=== PATIENT | female | born 1950 | race Caucasian/White ===

== ENCOUNTER 2020-06-19 09:24 | Day surgery (SDC) | payer MEDICARE, OTHER ==
[2020-06-18 12:18] LABS: BASOPHILS # (AUTO) 0.1 X10'3 (0-0.2); BASOPHILS % (AUTO) 1.4 % (0-1); EOSINOPHILS # (AUTO) 0.2 X10'3 (0-0.9); EOSINOPHILS % (AUTO) 3.5 % (0-6); HEMATOCRIT 41.5 % (35.0-45.0); LYMPHOCYTES # (AUTO) 1.5 X10'3 (1.1-4.8); LYMPHOCYTES % (AUTO) 24.4 % (21-51); MEAN CORPUSCULAR HEMOGLOBIN 32.9 PG (27.0-31.0); MEAN CORPUSCULAR HGB CONC 33.8 g/dL (33.0-36.5); MEAN CORPUSCULAR VOLUME 97.5 FL (78-98); MEAN PLATELET VOLUME 9.8 FL (7.4-10.4); MONOCYTES # (AUTO) 0.6 X10'3 (0-0.9); NEUTROPHILS # (AUTO) 3.8 X10'3 (1.8-7.7); NEUTROPHILS % (AUTO) 60.7 % (42-75); PLATELET COUNT 189 X10'3 (140-440); RED BLOOD COUNT 4.26 X10'6 (4.20-5.60); RED CELL DISTRIBUTION WIDTH 12.8 % (11.5-14.5); WHITE BLOOD COUNT 6.3 X10'3 (4.5-11.0)
[2020-06-18 12:25] LABS: ALBUMIN 3.9 G/DL (3.4-5.0); ANION GAP 9 (8-16); BLOOD UREA NITROGEN 26 MG/DL (7-18); BUN/CREATININE RATIO 27.4 (6.6-38.0); CALCIUM 9.3 MG/DL (8.5-10.1); CHLORIDE 103 MMOL/L (99-107); CREATININE 0.95 MG/DL (0.40-0.90); GLUCOSE 94 MG/DL (70-104); POTASSIUM 4.4 MMOL/L (3.5-5.1); SODIUM 139 MMOL/L (135-145); TOTAL CARBON DIOXIDE 27.2 MMOL/L (24-32); eGFR 58 ML/MIN
[2020-06-18 12:27] LABS: PARTIAL THROMBOPLASTIN TIME 28 SECONDS (22-32)
[2020-06-19] VITALS (9 sets, daily range): BP systolic 95–134; BP diastolic 50–71
[~2020-06-19] VITALS: Ht 162.6 cm; Wt 79.5 kg
[2020-06-19] MEDS ORDERED: normal saline 1,000 ML IV SCH (09:45)
[2020-06-19] MEDS ORDERED: LORazepam 0.5 MG tablet PO PRN (09:45)
[2020-06-19] MEDS ORDERED: diphenhydrAMINE 25mg capsule PO PRN (09:45)
[2020-06-19] MEDS ORDERED: LIDOcaine/PRILOcaine 5gm cream TP ONE (10:20)
[2020-06-19] MEDS ORDERED: LEVO137T19 PO (10:23)
[2020-06-19] MEDS ORDERED: EZET1TAB26 PO (10:23)
[2020-06-19] MEDS ORDERED: CRAN405C PO (10:23)
[2020-06-19] MEDS ORDERED: ESZO3TAB66 PO (10:23)
[2020-06-19] MEDS ORDERED: CINN500C15 PO (10:23)
[2020-06-19] MEDS ORDERED: ESTR42.53 (10:23)
[2020-06-19] MEDS ORDERED: CELE-85 PO (10:23)
[2020-06-19] MEDS ORDERED: LACT1CAP65 PO (10:23)
[2020-06-19] MEDS ORDERED: AMIT10TA6 PO (10:23)
[2020-06-19] MEDS ORDERED: MV-M1TAB19 PO (10:23)
[2020-06-19] MEDS ORDERED: UBID100C16 PO (10:23)
[2020-06-19] MEDS ORDERED: LIDOcaine 1% (10mg/ml)w/preservative injection 20ml MDV ONE (11:52)
[2020-06-19] MEDS ORDERED: iohexol 350 MG/ML 50ML vial IV ONE (11:53)
[2020-06-19] MEDS ORDERED: nitroGLYCERIN-Tridil 50MG/D5W 250 ML IV ONE (11:53)
[2020-06-19] MEDS ORDERED: verapamil 2.5 mg/ml inj IV ONE (11:53)
[2020-06-19] MEDS ORDERED: iohexol 350MG/ML 100ml bottle IV ONE (11:53)
[2020-06-19] MEDS ORDERED: heparin 1,000unit/ml 10ml vial 10 ML ONE (11:53)
[2020-06-19] MEDS ORDERED: midazolam 2 mg/2 ml injection ONE (11:54)
[2020-06-19] MEDS ORDERED: fentaNYL/PF 50MCG/1 ML 2ML syringe ONE (11:54)
[2020-06-19] MEDS ORDERED: normal saline 1000ml 1,000 ML IV ONE (13:40)
== END 2020-06-19 17:50 | disposition home or self-care (01) ==
LOC: SSTAY O 09:24
PROVIDERS: ATTEND Internal Medicine Cardiovascular Disease
DX: R94.39 Abnormal result of other cardiovascular function study (principal); R06.02 Shortness of breath; R07.89 Other chest pain; I25.10 Atherosclerotic heart disease of native coronary artery without angina pectoris; E78.5 Hyperlipidemia, unspecified; Z79.899 Other long term (current) drug therapy
CPT/HCPCS: 36415; 80048; 85025; 85610; 85730; 93005; 93458; 99152; 99153; C1769; C1894; J1644; J2001; J2250; J3010; J7030; Q0163; Q9967; A4620; A5120; J3490